=== PATIENT | female | born 1955 | race Caucasian/White ===

== ENCOUNTER → 2016-11-04 | Outpatient (CLI) | payer OTHER ==
[~2016-11-04] MED LIST: ASPIRIN325 MG PO; CORDARONE 200M200 MG PO; ELAVIL 10 MG TA10 MG PO; ELIQUIS5 MG PO; FIORICET TAB1 EA PO; FUROSEMIDE20 MG PO; HABITROL 21 MG P1 EA TD; LANTUS100 UNIT/1 SQ; LEVEMIR100 UNIT/1 SC; LIPITOR TAB 2020 MG PO; LISINOPRIL10 MG PO; LOPRESSOR100 MG PO; MELATONIN1 MG PO; MELOXICAM15 MG PO; MULTI FOR HER1 EACH PO; MULTI-VITAMIN1 EACH PO; NOVOLOG 10100 UNITS/ SC; PROTONIX40 MG PO; SENOKOT-S TABL1 EACH PO; TOPAMAX50 MG PO; TRIAMTERENE-HC1 EACH PO; VERAPAMIL ER120 M1 PO; VOLTAREN100 GM TOP; XARELTO20 MG PO; ZANTAC 150 MG150 MG PO
[2016-11-04 11:29] LABS: RED BLOOD COUNT 4.23 M/UL (4.00-5.10); WHITE BLOOD COUNT 7.4 K/UL (4.5-11.0)
[2016-11-04 11:55] LABS: BUN/CREATININE RATIO 19 (0-10)
== END ==
LOC: LAB 10:10
PROVIDERS: Internal Medicine Cardiovascular Disease
DX: I48.92 Unspecified atrial flutter (principal); I10 Essential (primary) hypertension; I48.0 Paroxysmal atrial fibrillation; R93.1 Abnormal findings on diagnostic imaging of heart and coronary circulation; Z79.899 Other long term (current) drug therapy; Z95.0 Presence of cardiac pacemaker
CPT/HCPCS: 36415; 71020; 80053; 84439; 84443; 84481; 85025

== ENCOUNTER 2016-11-05 10:27 | Outpatient (CLI) | payer OTHER ==
[~2016-11-05] VITALS: Ht 167.6 cm; Wt 96.6 kg
[~2016-11-05 10:27] MED LIST changes: -ELAVIL 10 MG TA10 MG PO; -ELIQUIS5 MG PO; -FIORICET TAB1 EA PO; -FUROSEMIDE20 MG PO; -LANTUS100 UNIT/1 SQ; -MELATONIN1 MG PO; -PROTONIX40 MG PO; -SENOKOT-S TABL1 EACH PO; -TOPAMAX50 MG PO
[2016-11-05] MEDS ORDERED: LANTUS100 UNIT/1 SQ (11:23)
[2016-11-05] MEDS ORDERED: FUROSEMIDE20 MG PO (11:27)
[2016-11-05] MEDS ORDERED: ELIQUIS5 MG PO (11:27)
[2016-11-05] MEDS ORDERED: PROTONIX40 MG PO (11:28)
[2016-11-05] MEDS ORDERED: TOPAMAX50 MG PO (11:28)
[2016-11-05] MEDS ORDERED: ELAVIL 10 MG TA10 MG PO (11:29)
[2016-11-05] MEDS ORDERED: FIORICET TAB1 EA PO (11:29)
[2016-11-05] MEDS ORDERED: MELATONIN1 MG PO (11:29)
[2016-11-05] MEDS ORDERED: SENOKOT-S TABL1 EACH PO (11:30)
== END 2016-11-06 16:03 | disposition home or self-care (01) ==
LOC: PROG CARE 10:27 → CATH 10:27 → PROG CARE 15:14 → CATH 11-06 16:03
DX: I48.92 Unspecified atrial flutter (principal); I49.5 Sick sinus syndrome; I48.0 Paroxysmal atrial fibrillation; E11.9 Type 2 diabetes mellitus without complications; I10 Essential (primary) hypertension; E78.5 Hyperlipidemia, unspecified; I25.10 Atherosclerotic heart disease of native coronary artery without angina pectoris; Z86.73 Personal history of transient ischemic attack (TIA), and cerebral infarction without residual deficits; Z79.02 Long term (current) use of antithrombotics/antiplatelets; Z79.899 Other long term (current) drug therapy; Z88.5 Allergy status to narcotic agent; Z88.0 Allergy status to penicillin; Z79.4 Long term (current) use of insulin; Z79.82 Long term (current) use of aspirin; Z95.0 Presence of cardiac pacemaker
CPT/HCPCS: 82962; 92960; 93005; 93609; 93621; C1730; C1766; J0360; J1200; J1644; J2250; J3010; J7040

== ENCOUNTER → 2016-11-18 | Outpatient (CLI) | payer OTHER ==
[~2016-11-18] MED LIST changes: +ELAVIL 10 MG TA10 MG PO; +ELIQUIS5 MG PO; +FIORICET TAB1 EA PO; +FUROSEMIDE20 MG PO; +LANTUS100 UNIT/1 SQ; +MELATONIN1 MG PO; +PROTONIX40 MG PO; +SENOKOT-S TABL1 EACH PO; +TOPAMAX50 MG PO
== END ==
LOC: HEART 5 09:04
DX: Z51.81 Encounter for therapeutic drug level monitoring (principal); Z79.899 Other long term (current) drug therapy; F17.210 Nicotine dependence, cigarettes, uncomplicated; R94.2 Abnormal results of pulmonary function studies
CPT/HCPCS: 94060; 94729